=== PATIENT | female | born 1955 | race Caucasian/White ===

== ENCOUNTER 2022-12-29 23:40 | Emergency (ER) | payer OTHER ==
[~2022-12-29] VITALS: Ht 154.9 cm; Wt 41.7 kg
[2022-12-29 23:50] VITALS: BP 181/93; PULSE 72; RESP 20; TEMP 97.2; O2SAT 99
[2022-12-30] MEDS ORDERED: NACL 0.9% 1,000 ML IV ONE (01:40)
[2022-12-30 02:01] LABS: BASOPHILS % (AUTO) 0.9 % (0.0-2.0); EOSINOPHILS # (AUTO) 0.1 K/uL (0-0.4); EOSINOPHILS % (AUTO) 1.3 % (0.0-4.0); HEMATOCRIT 41.9 % (36-48); HEMOGLOBIN 14.5 g/dL (12.0-16.0); LYMPHOCYTES # (AUTO) 1.1 K/uL (2.5-16.5); LYMPHOCYTES % (AUTO) 26.7 % (20.5-51.1); MEAN CORPUSCULAR HEMOGLOBIN 32 pg (27-31); MEAN CORPUSCULAR HGB CONC 35 g/dL (33-37); MEAN CORPUSCULAR VOLUME 91.4 fL (80-94); MONOCYTES # (AUTO) 0.2 K/uL (0.8-1.0); MONOCYTES % (AUTO) 5.5 % (1.7-9.3); NEUTROPHILS # (AUTO) 2.6 K/uL (1.8-7.7); NEUTROPHILS % (AUTO) 65.6 % (42.2-75.2); PLATELET COUNT (AUTO) 261 K/uL (140-450); RED BLOOD CELL COUNT(AUTO) 4.59 MIL/uL (4.20-5.40); RED CELL DISTRIBUTION WIDTH 14.6 % (11.6-13.7); WHITE BLOOD COUNT (AUTO) 3.9 K/uL (4.8-10.8)
[2022-12-30 02:18] LABS: ANION GAP 11.8 (8-16); CALCIUM 9.5 mg/dL (8.5-10.1); CARBON DIOXIDE 29.4 mmol/L (21-32); POTASSIUM 4.2 mmol/L (3.5-5.1); TOTAL BILIRUBIN 0.5 mg/dL (0.0-1.0)
[2022-12-30 03:24] LABS: APPEARANCE,URINE CLEAR (CLEAR); BILIRUBIN,URINE NEGATIVE (NEGATIVE); BLOOD, URINE TRACE-I (NEGATIVE); COLOR,URINE YELLOW (YELLOW); LEUKOCYTE ESTERASE ,URINE NEGATIVE (NEGATIVE); NITRITE, URINE NEGATIVE (NEGATIVE); PROTEIN,URINE TRACE (NEGATIVE); UGLUCOSE NEGATIVE (NEGATIVE); UROBILINOGEN,URINE 0.2 EU/dL (0.2 - 1)
[2022-12-30 03:26] LABS: BACTERIA,URINE FEW /HPF (None Seen); SQUAMOUS EPITHELIAL CELL,UR 0-3 (FEW) /LPF (0-3 (FEW)); WBC,URINE 0-5 /HPF (0-5)
[2022-12-30 03:27] LABS: MUCUS,URINE None Seen /LPF (None Seen)
[2022-12-30] MEDS ORDERED: ONDANSETRON 4 MG ODT PO ONE (05:10)
[2022-12-30] MEDS ORDERED: ONDA-188 SL (05:16)
[2022-12-30 05:20] VITALS: BP 143/95; PULSE 75; RESP 20; TEMP 97.7; O2SAT 99
== END 2022-12-30 05:20 | disposition home or self-care (01) ==
LOC: MED 23:40
DX: A08.4 Viral intestinal infection, unspecified (principal); Z79.899 Other long term (current) drug therapy
CPT/HCPCS: 36415; 80053; 81001; 82140; 85025; 96360; 99283; J7030; Q0162

== ENCOUNTER 2023-06-17 04:30 | Emergency (ER) | payer MEDICARE, OTHER ==
[~2023-06-17] VITALS: Ht 154.9 cm; Wt 47.6 kg
[~2023-06-17 04:30] MED LIST: ONDA-188 SL
[2023-06-17 04:49] VITALS: BP 135/107; PULSE 77; RESP 16; TEMP 99; O2SAT 98
[2023-06-17] MEDS ORDERED: AZIT250T4 PO (05:15)
[2023-06-17] MEDS ORDERED: PRED50TA2 PO (05:15)
[2023-06-17] MEDS ORDERED: IBUP-1842 PO (05:15)
== END 2023-06-17 05:20 | disposition home or self-care (01) ==
LOC: MED 04:30
DX: R05.9 Cough, unspecified (principal); R50.9 Fever, unspecified; R03.0 Elevated blood-pressure reading, without diagnosis of hypertension
CPT/HCPCS: 81002; 99282